=== PATIENT | female | born 1980 | race Caucasian/White ===

== ENCOUNTER 2017-08-25 12:41 | Emergency (ER) | payer MEDICAID ==
[2017-08-25] MEDS: HYDROCODONE/APAP (5/325) TAB PO (16:14)
== END 2017-08-25 18:00 | disposition left against medical advice (07) ==
LOC: FTE 12:41
DX: R10.2 Pelvic and perineal pain (principal)
CPT/HCPCS: 76830; 76856; 99284-25